=== PATIENT | female | born 1960 | race Caucasian/White ===

== ENCOUNTER → 2018-12-28 | Day surgery (SDC) | payer OTHER, MEDICAID ==
[~2018-12-28] MED LIST: ALLO100T PO; ALPR0.5T6 PO; ARIP30TA4 PO; ASPI-630 PO; ESTR1.25 PO; ESTR30CR VG; FENO54TA PO; IV NORMAL SALINE 1000ML BAG 1,000 ML IV ONE; IV RINGERS,LACTATED 1000ML 1,000 ML IV ONE; LAMO200T2 PO; LIDOCAINE 2% PF 5 ML VIAL. ONE; METO25TA4 PO; MIRA50TA PO; MONT10TA49 PO; POTA10TA12 PO; PROPOFOL 40 ML IV ONE; SIMV20TA3 PO; TOPI25CA11 PO; VENL75TA PO; WARF2TAB96 PO
[2018-12-28 09:30] VITALS: BP 133/66
== END ==
LOC: SURG 07:41
PROVIDERS: ATTEND Internal Medicine Gastroenterology
DX: K57.30 Diverticulosis of large intestine without perforation or abscess without bleeding (principal); K64.0 First degree hemorrhoids; F41.9 Anxiety disorder, unspecified; J45.909 Unspecified asthma, uncomplicated; F32.9 Major depressive disorder, single episode, unspecified; K21.9 Gastro-esophageal reflux disease without esophagitis; E78.00 Pure hypercholesterolemia, unspecified; N28.9 Disorder of kidney and ureter, unspecified; F15.90 Other stimulant use, unspecified, uncomplicated; Z88.6 Allergy status to analgesic agent; Z88.1 Allergy status to other antibiotic agents; Z88.5 Allergy status to narcotic agent; Z88.0 Allergy status to penicillin; Z88.8 Allergy status to other drugs, medicaments and biological substances; Z72.89 Other problems related to lifestyle; Z79.82 Long term (current) use of aspirin; Z90.710 Acquired absence of both cervix and uterus
CPT/HCPCS: 45378; J2001; J2704

== ENCOUNTER 2019-11-22 15:15 | Emergency (ER) | payer MEDICARE, MEDICAID ==
[~2019-11-22] VITALS: Ht 160 cm; Wt 140.0 kg
[~2019-11-22 15:15] MED LIST changes: -IV NORMAL SALINE 1000ML BAG 1,000 ML IV ONE; -IV RINGERS,LACTATED 1000ML 1,000 ML IV ONE; -LAMO200T2 PO; +LAMO200T6 PO; -LIDOCAINE 2% PF 5 ML VIAL. ONE; -POTA10TA12 PO; +POTASSIUM CHLO10 ME1 PO; -PROPOFOL 40 ML IV ONE; +SIMV20TA18 PO; -SIMV20TA3 PO
--- NOTE | 2019-11-22 15:26 | PHYS DOC ---
Past Medical History Past Medical History: Asthma Past Medical History BIPOLAR, STAGE 4 KIDNEY DISEASE Drug Use: None General Adult EDM: Chief Complaint: Palpitations HPI: HPI: Patient is a 59 year old female who presents with 2-week history of shortness of breath. Patient describes palpitations as pounding heartbeat that is intermittent. Patient describes an intermittent chest pain as well as worse with deep breaths. Patient denies any chest pain at the time. Patient says she has had a cough. Patient says she was tested for coronavirus 2 weeks ago which was negative. Patient denies any fever Review of Systems: Review of Systems: Constitutional: Denies fever or chills. [] Eyes: Denies change in visual acuity. [] HENT: Denies nasal congestion or sore throat. [] Respiratory: Denies cough or shortness of breath. [] Cardiovascular: Denies chest pain or edema. [] GI: Denies abdominal pain, nausea, vomiting, bloody stools or diarrhea. [] : Denies dysuria. [] Musculoskeletal: Denies back pain or joint pain. [] Integument: Denies rash. [] Neurologic: Denies headache, focal weakness or sensory changes. [] Endocrine: Denies polyuria or polydipsia. [] Lymphatic: Denies swollen glands. [] Psychiatric: Denies depression or anxiety. [] Heart Score: HEART Score for Chest Pain: HEART Score for Chest Pain Response (Comments) Value History Slighlty/Non-Suspicious 0 ECG Normal 0 Age >45 - < 65 1 Risk Factors 1 or 2 Risk Factors 1 Troponin < Normal Limit 0 Total 2 Risk Factors: Risk Factors: DM, Current or recent (<one month) smoker, HTN, HLP, family history of CAD, obesity. Risk Scores: Score 0 - 3: 2.5% MACE over next 6 weeks - Discharge Home Score 4 - 6: 20.3% MACE over next 6 weeks - Admit for Clinical Observation Score 7 - 10: 72.7% MACE over next 6 weeks - Early Invasive Strategies Allergies: Allergies: Allergies Coded Allergies Type Severity Reaction Last Updated Verified Penicillins Allergy Intermediate 12/28/18 Yes acetaminophen Allergy Intermediate 12/28/18 Yes amitriptyline Allergy Intermediate 12/28/18 Yes carbazochrome Allergy Intermediate 12/28/18 Yes cephalexin Allergy Intermediate 12/28/18 Yes codeine Allergy Intermediate 12/28/18 Yes hydrocodone Allergy Intermediate 12/28/18 Yes ketorolac Allergy Intermediate 12/28/18 Yes oxcarbazepine Allergy Intermediate 12/28/18 Yes quetiapine Allergy Intermediate 12/28/18 Yes tramadol Allergy Intermediate 12/28/18 Yes Physical Exam: PE: Constitutional: Well developed, well nourished, no acute distress, non-toxic appearance. HENT: No trismus, external ears normal Eyes: Conjunctiva clear, EOMI Neck: Normal range of motion, no tenderness, supple, no stridor. Cardiovascular: Regular rate/rhythm, peripheral pulse intact, FIELD INSPECTOR intact Lungs & Thorax: No respiratory distress Abdomen: No distension Skin: Diffuse: Intact, no rash Back: Full ROM Extremities: Mild swelling to bilateral lower extremities Neurologic: Alert and oriented X 3, normal motor function, , no focal deficits noted. Psychologic: Affect normal, judgement normal, mood normal. Current Patient Data: Labs: Laboratory Tests Test 11/22/19 15:50 11/22/19 15:55 Urine Collection Type Void Urine Color Yellow Urine Clarity Clear Urine pH 5.5 Urine Specific [place] <=1.005 Urine Protein 100 mg/dL Urine Glucose (UA) Negative mg/dL Urine Ketones (Stick) Negative mg/dL Urine Blood Trace Urine Nitrite Negative Urine Bilirubin Negative Urine Urobilinogen Dipstick 0.2 mg/dL Urine Leukocyte Esterase Negative Urine RBC 1-2 /HPF Urine WBC 1-4 /HPF Urine Squamous Epithelial Cells Few /LPF Urine Bacteria Few /HPF Urine Mucus Slight /LPF White Blood Count 8.3 x10^3/uL Red Blood Count 4.08 x10^6/uL Hemoglobin 13.4 g/dL Hematocrit 38.7 % Mean Corpuscular Volume 95 fL Mean Corpuscular Hemoglobin 33 pg Mean Corpuscular Hemoglobin Concent 35 g/dL Red Cell Distribution Width 14.3 % Platelet Count 214 x10^3/uL Neutrophils (%) (Auto) 55 % Lymphocytes (%) (Auto) 32 % Monocytes (%) (Auto) 8 % Eosinophils (%) (Auto) 3 % Basophils (%) (Auto) 1 % Neutrophils # (Auto) 4.6 x10^3/uL Lymphocytes # (Auto) 2.7 x10^3/uL Monocytes # (Auto) 0.7 x10^3/uL Eosinophils # (Auto) 0.3 x10^3/uL Basophils # (Auto) 0.1 x10^3/uL D-Dimer (Alysha) < 0.27 ug/mlFEU Sodium Level 140 mmol/L Potassium Level 4.2 mmol/L Chloride Level 102 mmol/L Carbon Dioxide Level 24 mmol/L Anion Gap 14 Blood Urea Nitrogen 53 mg/dL Creatinine 2.0 mg/dL Estimated GFR (Cockcroft-Gault) 25.7 BUN/Creatinine Ratio 27 Glucose Level 97 mg/dL Calcium Level 8.7 mg/dL Magnesium Level 1.9 mg/dL Total Bilirubin 0.2 mg/dL Aspartate Amino Transf (AST/SGOT) 26 U/L Alanine Aminotransferase (ALT/SGPT) 32 U/L Alkaline Phosphatase 110 U/L Troponin I Quantitative < 0.017 ng/mL QJ-Cie-Q-Type Natriuretic Peptide 86 pg/mL Total Protein 6.2 g/dL Albumin 3.2 g/dL Albumin/Globulin Ratio 1.1 Thyroid Stimulating Hormone (TSH) 0.834 uIU/mL Current Medications Medications (Trade) Dose Ordered Sig/Osei Route PRN Reason Start Time Stop Time Status Last Admin Dose Admin Aspirin (Aspirin Chewable) 324 mg 1X ONCE PO 11/22/19 16:00 11/22/19 16:01 DC 11/22/19 15:51 Vital Signs: Vital Signs Date Time Temp Pulse Resp B/P (MAP) Pulse Ox O2 Delivery O2 Flow Rate FiO2 11/22/19 17:07 86 20 144/82 (102) 95 Room Air 11/22/19 16:37 88 17 142/83 (102) 11/22/19 16:07 88 24 147/70 (95) 97 Room Air 11/22/19 15:39 98.0 89 20 143/71 (95) 95 Room Air 98.0 11/22/19 15:37 88 20 143/71 (95) 93 Room Air EKG: EKG: [] EKG interpreted by me normal sinus rhythm with a rate of 93 normal axis normal intervals normal ST segments Radiology/Procedures: Radiology/Procedures: [][facility] [address] [place] [address] IMAGING REPORT Signed PATIENT: DELROY SILVERIO ACCOUNT: [id number] : 1960 LOCATION: ER AGE: 59 SEX: F EXAM STATUS: PRE ER ORD. PHYSICIAN: DOMINIC JOHNSON MD REASON: CP, COUGH PROCEDURE: PORTABLE CHEST 1V PORTABLE CHEST 1V History: Reason: CP, COUGH / Spl. Instructions: / History: Comparison: None. Findings: Low lung volumes. Patchy bibasilar patchy mid and bibasilar opacities. No pleural effusion. No pneumothorax. Normal heart size. Impression: 1. Low lung volumes with patchy mid and bibasilar opacities, may represent atelectasis or consolidations. Recommend follow-up. Electronically signed by: Hamzah Barnes DO (11/22/2019 4:25 PM) [id number] DICTATED and SIGNED BY: HAMZAH BARNES DO DATE: 11/22/191624 Course & Med Decision Making: Course & Med Decision Making Pertinent Labs and Imaging studies reviewed. (See chart for details) [] Upon reassessment patient is in no distress. Patient's work-up is is reassuring other than possible infiltrate. Patient will be swabbed for coronavirus. The patient's vital signs not necessitate admission to the hospital. Patient was placed on Zithromax in case there is a bacterial componen t. Patient states she was at another hospital 3 days ago and they discharge her as well. 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 And her creatinine as a baseline.. Symptoms are atypical for acute coronary syndrome her EKG and troponin are negative. D-dimer is negative. Doubt pulmonary embolism. COVID-19 CRITERIA: The patient was evaluated during the global COVID-19 p andemic, and that diagnosis was suspected/considered upon their initial presentation. Their evaluation, treatment and testing was consistent with current guidelines for patients who present with complaints or symptoms that may be related to COVID-19. Dragon Disclaimer: Dragon Disclaimer: This electronic medical record was generated, in whole or in part, using a voice recognition dictation system. Departure Departure Impression: Primary Impression: Palpitations Additional Impression: Dyspnea Disposition: 01 HOME, SELF-CARE Condition: STABLE Referrals: SANDY DIMAS MD (PCP) 2-3 DAYS Patient Instructions: Palpitations, Shortness of Breath Additional Instructions: COVIDYou have been tested for or diagnosed with COVID-19. It is an infection caused by a new type of coronavirus. COVID-19 will cause cold-like or mild flu symptoms in most. It can cause more severe symptoms like problems breathing in some. There is no treatment for COVID-19. The body will clear the infection over time. Self-care will help to ease discomfort. Steps to Take: Self-Care Rest as needed. Healthy habits may help you feel better. Steps include: Choose healthy foods including fruits and vegetables. Drink water throughout the day. Get plenty of sleep each night. If you smoke, try to quit. It may ease breathing. Avoid alcohol. Keep Others Healthy The virus can spread to others. Droplets are released every time you sneeze or cough. The droplets can get into the mouth, nose, or eyes of people near you and lead to infection. To lower the chances of spreading COVID-19 to others: Stay at home until your doctor has said it is safe to leave. If you tested positive this will mean staying isolated until both of the following are true: At least 7 days have passed since the start of illness. You are free of fever for at least 72 hours without the use of medicine. During this time: - Avoid public areas, events, or transportation. Do not return to work or school until your doctor has said it is safe to do so. - Call ahead if you need to go to a medical center. Let them know you may have COVID-19. It will help them guide you where to go. They may also ask you to wear a facemask when you come to the office. - If you call for emergency medical services, let them know you may have COVID- 19. While at home: - Try to avoid close contact with others. Stay about 6 feet away. - If possible, spend most of your time in a separate room from others. - Use a face mask if you will be in close contact with others such as sharing a room or vehicle. - Have someone wipe down common surfaces in the home. Use household java developer architect every day on areas like doorknobs, counters, or sinks. - Cough or sneeze into a tissue. Throw the tissue away right after use. If a tissue is not available, cough or sneeze into your elbow. - Wash your hands often. Wash them after sneezing or coughing. Use soap and water and wash for at least 20 seconds. Alcohol based hand pool cleaner can be used if soap and water is not available. - Do not prepare food for others. Avoid sharing personal items like forks, spoons, or toothbrushes. - Avoid close contact with pets while you are sick. There is no evidence of the virus passing to pets. This is a safety step until more is known about this virus. Isolation can be frustrating. Social interaction can help. Keep in touch with friends and family through phone and tech options. You can still interact with others in your home, just keep a safe distance of about 6 feet. Follow-up: Your doctors office will check in with you to see if there are any changes in y our health. You may be asked to keep track of symptoms to share with them. They will also let you know when you are clear to be in public again. Problems to Look Out For: Contact your doctor if your recovery is not going as you expect. Get emergency care if you have problems such as: - Trouble breathing - Nonstop chest pain or pressure - Changes in awareness, confusion, or problems waking - Lips or face have bluish color - Worsening of symptoms If you think you have an emergency, call for emergency medical services right away. [facility] Azithromycin (ZITHROMAX) 250 Mg Tablet 1 PKG PO UD, #6 TAB Prov: DOMINIC JOHNSON MD 11/22/19 Justicifation of Admission Dx: Justifications for Admission: Justification of Admission Dx: N/A DOMINIC JOHNSON MD Nov 22, 2019 15:26
[2019-11-22] MEDS ORDERED: ASPIRIN CHEWABLE 81 MG TABLET. PO ONE (16:00)
[2019-11-22 16:07] LABS: BASO # 0.1 x10^3/uL (0.0-0.2); BASO % 1 % (0-3); EOS # 0.3 x10^3/uL (0.0-0.7); EOS % 3 % (0-3); HEMATOCRIT 38.7 % (36.0-47.0); HEMOGLOBIN 13.4 g/dL (12.0-15.5); LYMPH # 2.7 x10^3/uL (1.0-4.8); LYMPH % 32 % (24-48); MEAN CORPUSCULAR HEMOGLOBIN 33 pg (25-35); MEAN CORPUSCULAR HGB CONC 35 g/dL (31-37); MEAN CORPUSCULAR VOLUME 95 fL (79-100); MONO # 0.7 x10^3/uL (0.0-1.1); MONO % 8 % (0-9); NEUT # 4.6 x10^3/uL (1.8-7.7); NEUT % 55 % (31-73); PLATELET COUNT 214 x10^3/uL (140-400); RED BLOOD COUNT 4.08 x10^6/uL (3.50-5.40); RED CELL DISTRIBUTION WIDTH 14.3 % (11.5-14.5); WHITE BLOOD COUNT 8.3 x10^3/uL (4.0-11.0)
[2019-11-22 16:18] LABS: BILIRUBIN,URINE NEGATIVE (NEG); CLARITY,URINE CLEAR; COLOR,URINE YELLOW; NITRITE,URINE NEGATIVE (NEG); PH,URINE 5.5 (<5.0-8.0); PROTEIN,URINE 100 mg/dL (NEG-TRACE); UROBILINOGEN,URINE 0.2 mg/dL (0.2 mg/dL)
[2019-11-22 16:19] LABS: CALCIUM 8.7 mg/dL (8.5-10.1); GFR 25.7; POTASSIUM 4.2 mmol/L (3.5-5.1)
[2019-11-22 16:25] LABS: ALBUMIN 3.2 g/dL (3.4-5.0); ALBUMIN/GLOBULIN RATIO 1.1 (1.0-1.7); MAGNESIUM 1.9 mg/dL (1.8-2.4); TOTAL BILIRUBIN 0.2 mg/dL (0.2-1.0); TOTAL PROTEIN 6.2 g/dL (6.4-8.2)
--- NOTE | 2019-11-22 16:28 | RAD ---
PORTABLE CHEST 1V History: Reason: CP, COUGH / Spl. Instructions: / History: Comparison: None. Findings: Low lung volumes. Patchy bibasilar patchy mid and bibasilar opacities. No pleural effusion. No pneumothorax. Normal heart size. Impression: 1. Low lung volumes with patchy mid and bibasilar opacities, may represent atelectasis or consolidations. Recommend follow-up. Electronically signed by: Hamzah Barnes DO (11/22/2019 4:25 PM) [id number]
[2019-11-22 16:56] LABS: BACTERIA,URINE FEW /HPF (0-FEW); SQUAMOUS EPITHELIAL CELL,UR FEW /LPF
[2019-11-22 17:07] VITALS: BP 144/82
[2019-11-22] MEDS ORDERED: AZIT250T PO (17:19)
--- NOTE | 2019-11-25 09:51 | EKG ---
[facility] [address] [place] [address] Test Date: 2019-11-22 Test Time: 15:22:31 Pat Name: DELROY SILVEROI Department: Room: Gender: F [employer] Supervisor: ROSENDO : 1960 Requested By: DOMINIC JOHNSON Order Number: [id number] Reading MD: Measurements Intervals [place] Rate: 93 P: 28 RI: 188 QRS: 6 QRSD: 78 T: 28 QT: 344 QTc: 430 Interpretive Statements SINUS RHYTHM NORMAL ECG RI6.01 No previous ECG available for comparison
== END 2019-11-22 17:46 | disposition home or self-care (01) ==
LOC: ER 15:15
DX: R00.2 Palpitations (principal); Z20.828 Contact with and (suspected) exposure to other viral communicable diseases; R06.02 Shortness of breath; R07.89 Other chest pain; N18.4 Chronic kidney disease, stage 4 (severe); J45.909 Unspecified asthma, uncomplicated; F31.9 Bipolar disorder, unspecified; Z88.0 Allergy status to penicillin; Z88.1 Allergy status to other antibiotic agents; Z88.5 Allergy status to narcotic agent; Z88.6 Allergy status to analgesic agent; Z88.8 Allergy status to other drugs, medicaments and biological substances
CPT/HCPCS: 36415; 71045; 80053; 81001; 83735; 83880; 84443; 84484; 85025; 85379; 93005; 99285; U0003

== ENCOUNTER 2020-02-28 08:08 | Outpatient (CLI) | payer MEDICARE, MEDICAID ==
[2020-02-28] VITALS (15 sets, daily range): BP systolic 109–141; BP diastolic 69–90
[~2020-02-28] VITALS: Ht 160 cm; Wt 131.5 kg
[~2020-02-28 08:08] MED LIST changes: +AZIT250T PO
[2020-02-28 08:51] LABS: BASO % 1 % (0-3); EOS # 0.3 x10^3/uL (0.0-0.7); EOS % 4 % (0-3); HEMATOCRIT 38.6 % (36.0-47.0); HEMOGLOBIN 13.1 g/dL (12.0-15.5); LYMPH # 1.5 x10^3/uL (1.0-4.8); LYMPH % 24 % (24-48); MEAN CORPUSCULAR HEMOGLOBIN 33 pg (25-35); MEAN CORPUSCULAR HGB CONC 34 g/dL (31-37); MEAN CORPUSCULAR VOLUME 97 fL (79-100); MONO # 0.6 x10^3/uL (0.0-1.1); MONO % 9 % (0-9); NEUT % 63 % (31-73); PLATELET COUNT 203 x10^3/uL (140-400); RED BLOOD COUNT 3.97 x10^6/uL (3.50-5.40); RED CELL DISTRIBUTION WIDTH 13.8 % (11.5-14.5); WHITE BLOOD COUNT 6.4 x10^3/uL (4.0-11.0)
[2020-02-28 09:03] LABS: PROTHROMBIN TIME PATIENT 15.3 SEC (11.7-14.0)
[2020-02-28 09:17] LABS: CALCIUM 9.4 mg/dL (8.5-10.1); CREATININE 1.8 mg/dL (0.6-1.0); POTASSIUM 3.8 mmol/L (3.5-5.1)
[2020-02-28] MEDS ORDERED: GABA300C18 PO (09:36)
[2020-02-28] MEDS ORDERED: SENN8.8S5 PO (09:36)
[2020-02-28] MEDS ORDERED: OMEG-128 PO (09:36)
[2020-02-28] MEDS ORDERED: BUDE0.25 NEB (09:36)
[2020-02-28] MEDS ORDERED: FURO80TA3 PO (09:36)
[2020-02-28] MEDS ORDERED: MULT-658 PO (09:36)
[2020-02-28] MEDS ORDERED: CETI10TA16 PO (09:36)
[2020-02-28] MEDS ORDERED: CLON-77 PO (09:36)
[2020-02-28] MEDS ORDERED: GABA600T7 PO (09:36)
[2020-02-28] MEDS ORDERED: MELA1TAB11 PO (09:36)
[2020-02-28] MEDS ORDERED: DOCU50CA9 PO (09:36)
[2020-02-28] MEDS ORDERED: LIDOCAINE WITH 8.4% SOD BICARB 3 ML DISP.SYRIN. ONE (09:44)
[2020-02-28] MEDS ORDERED: GELATIN SPONGE SIZE 12-7MM SPONGE. ONE (09:51)
[2020-02-28] MEDS ORDERED: MIDAZOLAM HCL/PF 2 MG/2 ML VIAL. ONE (09:56)
[2020-02-28] MEDS ORDERED: fentaNYL PF VIAL 100 MCG/2 ML VIAL ONE (09:56)
[2020-02-28] MEDS ORDERED: MIDAZOLAM HCL/PF 2 MG/2 ML VIAL. IV ONE (10:15)
[2020-02-28] MEDS ORDERED: fentaNYL PF VIAL 100 MCG/2 ML VIAL IV ONE (10:15)
[2020-02-28] MEDS ORDERED: LIDOCAINE WITH 8.4% SOD BICARB 3 ML DISP.SYRIN. INJ ONE (10:15)
--- NOTE | 2020-02-28 13:30 | NUR ---
Discharge Note: DELROY SILVERIO Discharge instructions and discharge home medications reviewed with Patient and friend Jessica; and a copy given. All questions have been answered and understanding verbalized. The following instructions and handouts were given: CKD, moderate sedation, and post biopsy care. Discontinued lines and drains: Left upper arm IV dc'd and tip intact. Patient discharged to home with friend via personal vehicle.
--- NOTE | 2020-02-28 15:20 | RAD ---
CT-guided biopsy, right kidney 02/28/2020 Clinical Indication: Chronic renal failure, progressive Sedation: Conscious sedation was administered for 30 minutes. The patient was monitored by a qualified independent observer throughout the time of sedation. Please refer to the medical record for exact doses of medications utilized to achieve moderate sedation. Sterility: The procedure was performed in its entirety using appropriate elements of sterile technique. Consent: The procedure was explained in its entirety to the patient or the patients designated customer contact representative by a member of the treatment team, including a discussion of the risks, benefits and commonly accepted alternatives to the procedure, as well as the expected consequences of no therapy whatsoever. Discussion of the risks included, but was not limited to, those that are most frequent and those that are rare but possibly severe or life-threatening, as well as the possibility of unforeseen complications. Technique and Findings: Following informed consent, the patient was prepped and draped in the usual sterile fashion. CT imaging was used to delineating renal anatomy. The right kidney was selected for biopsy. 1% lidocaine was administered for local anesthesia. A small dermatotomy was made. Under periodic CT surveillance, 17-gauge needle was advanced into the inferior aspect of the lower right kidney. Core biopsy samples were obtained and divided amongst formalin and Hiram's solution. Gelfoam embolization of the biopsy tract was performed as a guiding needles removed. Manual pressure was held. No immediate complications were identified a postprocedure limiting. Impression: CT-guided right renal biopsy as described. PQRS Compliance Statement: One or more of the following individualized dose reduction techniques were utilized for this examination: 1. Automated exposure control 2. Adjustment of the mA and/or kV according to patient size 3. Use of iterative reconstruction technique
== END 2020-02-28 13:30 | disposition home or self-care (01) ==
LOC: INTRAD 08:08
PROVIDERS: ATTEND Family Medicine
DX: N18.4 Chronic kidney disease, stage 4 (severe) (principal); F41.9 Anxiety disorder, unspecified; F32.9 Major depressive disorder, single episode, unspecified; K21.9 Gastro-esophageal reflux disease without esophagitis; E78.00 Pure hypercholesterolemia, unspecified; Z88.0 Allergy status to penicillin; Z88.5 Allergy status to narcotic agent; Z88.8 Allergy status to other drugs, medicaments and biological substances; Z79.899 Other long term (current) drug therapy
CPT/HCPCS: 36415; 50200; 77012; 80048; 85025; 85610; 99152; J2250; J3010; J3490